=== PATIENT | female | born 2000 | race Asian ===

== ENCOUNTER 2021-03-05 12:46 | Emergency (ER) | payer OTHER, SELFPAY ==
[2021-03-05 13:01] VITALS: BP 112/75; PULSE 109; RESP 20; TEMP 36.8; O2SAT 100
--- NOTE | 2021-03-05 13:07 | ED.FEVER ---
HPI - Fever General Chief Complaint: Fever Stated Complaint: Fever,Headache Time Seen by Provider: 03/05/21 13:08 Source: patient Mode of arrival: ambulatory Limitations: no limitations History of Present Illness HPI Narrative: Merissa Huertas is a 20 yo female with no PMH who comes to [facility] with complaints of fatigue dizziness not feeling well in general that started last night with a headache and fever which came down with Tylenol, she felt nauseous this morning had fever initially this morning unable to go to college. Related Data Allergies Allergy/AdvReac Type Severity Reaction Status Date / Time No Known Allergies Allergy Verified 03/05/21 12:52 Review of Systems Review of Systems: CONSTITUTIONAL: Has fever, chills, sweats. EYES: Denies visual changes, redness, discharge. ENT: Denies rhinorrhea, mild congestion, sore throat, no otalgia. CARDIOVASCULAR: Denies chest pain, palpitations, edema. RESPIRATORY: Denies dyspnea, wheezing, cough GASTROINTESTINAL: Denies abdominal pain, nausea, vomiting, diarrhea. GENITOURINARY: Denies dysuria, hematuria, abnormal discharge SKIN: Denies rash or itching. NEUROLOGIC: Denies numbness, or focal weakness. PSYCHIATRIC: Denies anxiety or depression. [facility] Past Medical History Medical History No acute medical problems Family History Family History (Updated 03/05/21 @ 13:44 by Mandy Barton CNP) Mother High cholesterol Social History Social History (Updated 03/05/21 @ 13:33 by Mandy Barton CNP) Smoking status: Never smoker Substance use: never Comments At time of signature, I agree with nursing past medical, surgical, social and family history. There is no relevant family history pertinent to the presenting complaint. Exam Narrative: GENERAL: This is a well-nourished, well-developed patient, in moderate distress. HEAD: normocephalic, atraumatic. EYES: Sclera clear/white. Vision is grossly intact. EARS: External ears normal, auditory canals clear and without drainage, small amount of cotton in left ear canal TMs normal without perforation. Hearing grossly intact. NOSE: External nose normal without nasal discharge, nares without redness, no rhinorrhea. THROAT: Mucous membranes moist, posterior pharynx erythema NECK: Neck supple, non-tender CARDIOVASCULAR: Tachycardic rate and rhythm without murmurs, gallops, or rubs. RESPIRATORY: Clear to auscultation. Breath sounds equal bilaterally. No wheezes, rales, or rhonchi. GASTROINTESTINAL: Abdomen soft, non-tender, SKIN: warm, intact with no suspicious lesions or rash, good texture and turgor. NEURO: awake, alert, and oriented to person, place and time. There were no obvious focal neurologic abnormalities. Steady gait EXTREMITIES: Normal range of motion. BACK: Nontender without deformity Course [employer]/PA Physician Supervision Patient comes to [facility] with fever, feeling well, fatigue Strep test was negative Patient is febrile currently-discussed treating symptoms with father including ibuprofen and Tylenol and rotation, pushing fluids, Zofran Vital Signs Vital signs: Vital Signs Temperature 98.3 F 03/05/21 13:01 Pulse Rate 109 H 03/05/21 13:01 Respiratory Rate 20 03/05/21 13:01 Blood Pressure 112/75 03/05/21 13:01 Pulse Oximetry 100 03/05/21 13:01 Temperature 98.3 F 03/05/21 13:01 Pulse Rate 109 H 03/05/21 13:01 Respiratory Rate 20 03/05/21 13:01 Blood Pressure 112/75 03/05/21 13:01 Pulse Oximetry 100 03/05/21 13:01 MDM - Fever Differential Diagnosis Differential diagnosis: Likely viral infection, influenza and other Lab Data Labs: Strep Screen Presumptive Negative *(Reference Range: Negative)* Critical Care Time Critical Care Time Critical Care Time: No Discharge Plan Discharge Clinical Impression: Viral infection Patient Dispositi
== END 2021-03-05 13:48 | disposition home or self-care (01) ==
PROVIDERS: Emergency Provider Nurse Practitioner
DX: B34.9 Viral infection, unspecified (principal)
CPT/HCPCS: 87081; 87880; 99203; G0463